=== PATIENT | male | born 1940 | race Caucasian/White ===

== ENCOUNTER 2016-05-22 17:05 | Emergency (ER) | payer MEDICARE, BC ==
[2016-05-22 15:17] LABS: BASOPHILS 0.2 %; BASOPHILS ABSOLUTE 0.02 10/3/uL (0.0-0.16); EOSINOPHILS 0.4 %; EOSINOPHILS ABSOLUTE 0.05 10/3/uL (0.0-0.53); HEMATOCRIT 45.9 % (40.0-51.0); HEMOGLOBIN 16.2 g/dL (13.6-17.8); IMMATURE GRANULOCYTES 0.3 %; IMMATURE GRANULOCYTES ABSOLUTE 0.04 10/3/uL (0.0-0.11); LYMPHOCYTES 8.2 %; LYMPHOCYTES ABSOLUTE 1.04 10/3/uL (0.67-4.30); MEAN CORPUSCULAR HEMOGLOB 31.3 pg (26.0-34.0); MONOCYTES 8.9 %; MONOCYTES ABSOLUTE 1.13 10/3/uL (0.21-1.20); NEUTROPHILS ABSOLUTE 10.43 10/3/uL (2.02-8.40); PLATELET COUNT 138 10/3/uL (150-400); RBC DISTRIBUTION WIDTH 15.1 % (12.0-16.0); RED CELL COUNT 5.17 10/6/uL (4.7-6.1)
[2016-05-22 15:18] LABS: ER CBC TAT 0 Hrs 08 Mins; MANUAL DIFF NO %; MEAN CORPUS HGB CONC 35.3 g/dL (32.0-36.0); MEAN CORPUSCULAR VOLUME 88.8 fL (80-100); WHITE BLOOD CELLS 12.7 10/3/uL (4.5-10.5)
[2016-05-22 15:27] LABS: ASCORBIC ACID (UR NOT ORDER) NEG (NEG); BILIRUBIN, URINE NEGATIVE (NEG); ER URINALYSIS TAT 0 Hrs 19 Mins; KETONE, URINE NEGATIVE (NEG); LEUKOCYTE ESTERASE(NOT OR LARGE (NEG); NITRITE (URINE) POS (NEG); WBC (NOT ORDERED) (RFLEX) > 182 (0-5)
[2016-05-22 15:33] LABS: A/G RATIO 1.1 (0.7-1.9); ALBUMIN 3.7 G/DL (3.5-5.0); ALKALINE PHOSPHATASE 43 U/L (45-117); BUN (BLOOD UREA NITROGEN) 23 MG/DL (6-23); CALCIUM, SERUM 9.7 MG/DL (8.5-10.4); CHLORIDE, SERUM 104 MMOL/L (96-112); CO2 (CARBON DIOXIDE) 31 MMOL/L (24-34); CREATININE 1.44 MG/DL (0.70-1.30); DIRECT BILIRUBIN 0.4 MG/DL (0.0-0.4); GFR AFRICAN AMERICAN 55 ML/MIN (>=60); GFR NON AFRICAN AMERICAN 47 ML/MIN (>=60); GLOBULIN 3.4 G/DL (2.5-4.1); GLUCOSE, SERUM 108 MG/DL (60-99); INDIRECT BILIRUBIN(NOT ORDER) 3.4 MG/DL (0.1-0.9); POTASSIUM, SERUM 4.6 MMOL/L (3.5-5.3); SGOT(AST) 17 U/L (5-40); SGPT(ALT) 21 U/L (5-65); SODIUM, SERUM 141 MMOL/L (135-148); TOTAL BILIRUBIN 3.8 MG/DL (0-1.2); TOTAL PROTEIN 7.1 G/DL (6.0-8.5)
[2016-05-22 15:57] LABS: LACTATE 1.4 MMOL/L (0.3-2.4)
[~2016-05-22 17:05] MED LIST: ATEN50 PO; C25 PO; C5 PO; DEMA20 PO; DIGITEK0.25 MG PO; FISH OIL1200 MG PO; FLOMAX4 PO; GLUMETZA500 MG PO; IBU-200200 MG PO; KLOR-CON M2020 MEQ PO; PROSCAR5 PO; VITAMIN D31000 UNIT PO; Z300 PO; ZOCOR20 PO; [UNRECOGNIZED DRUG - OTHER] EX
== END 2016-05-22 18:16 | disposition home or self-care (01) ==
LOC: ER 17:05
PROVIDERS: Emergency Medicine
DX: N39.0 Urinary tract infection, site not specified (principal); N12 Tubulo-interstitial nephritis, not specified as acute or chronic; Z90.5 Acquired absence of kidney; I48.91 Unspecified atrial fibrillation; Z85.528 Personal history of other malignant neoplasm of kidney; Z79.01 Long term (current) use of anticoagulants; Z79.899 Other long term (current) drug therapy
CPT/HCPCS: 71010; 80053; 81001; 82248; 83605; 85025; 87077; 87086; 87186; 96365; 96375; 99285; J1956